=== PATIENT | female | born 1935 | race Two or more races ===

== ENCOUNTER → 2016-06-03 | Outpatient (CLI) | payer MEDICARE ==
--- NOTE | 2016-05-29 16:05 | MH ---
cc: TEODORO FRANCIS DATE OF ADMISSION: 06/03/2016 ADMITTING DIAGNOSIS: Cloudy posterior capsule, left eye. HISTORY OF PRESENT ILLNESS This 81-year-old white female is coming through [facility] for the purpose of a YAG laser posterior capsulotomy of the left eye. She is status post bilateral cataract surgery with intraocular lens implants in the past and has done well postoperatively but now notices hazy vision in her left eye all the time and was found to have a cloudy posterior capsule in the left eye. She has elected to have a YAG laser posterior capsulotomy at this time. PAST MEDICAL HISTORY The patient has a history of emphysema. PAST SURGICAL HISTORY: Melanoma removal from the right boateng as well as the bilateral cataract surgery mentioned above. MEDICATIONS 1. Occasional hydrochlorothiazide. 2. She sometimes has to take Advair and ProAir but has not had to use it lately. ALLERGIES: ASPIRIN. KEFLEX PENICILLIN SOCIAL HISTORY, FAMILY, REVIEW OF SYSTEMS: Noncontributory OCULAR EXAMINATION: Patient's best corrected visual acuity is 20/25 +1 in the right eye and 20/25 -1 in the left. Visual guadalupe are full to confrontation testing. Extraocular muscle exam reveals full versions with orthophoria at distance and near. Pupils are 3 mm equal, round, reactive to light without afferent defect. Anterior segment examination reveals bilateral posterior chamber intraocular lens implants with a cloudy posterior capsule in the left eye. Intraocular pressures 15 in each eye by applanation tonometry. Dilated fundus exam revealed sharp disk with cup-to-disk ratio 0.2 bilaterally. There are drusen and retinal pigment epithelial changes in the macula of each eye. A posterior vitreous detachment is present in the right eye. IMPRESSION 1. Cloudy posterior capsule left eye. 2. Pseudophakia both eyes. 3. Posterior vitreous detachment right eye. 4. Mild macular degeneration both eyes. PLAN: YAG laser posterior capsulotomy of the left eye through [facility]. MD CARRIE Littlejohn/JOSE G /1:37 PM /3:21 PM
[~2016-06-03] MED LIST: BALANCED SALT SOLN OPHT IRRIG 15 ML BTL ONE; FLUOROMETHOLONE 0.25% OPHT SUSP 5 ML BTL ONE; HYPROMELLOSE 0.3 % OPTH GEL 10 GM (0.34 FL OZ) TUBE ONE; PHENYLEPHRINE HCL 2.5% OPTH SOLN 2 ML BTL ONE; PROPARACAINE HCL 0.5% OPHT SOLN 15 ML BTL ONE; TROPICAMIDE 1% OPHT SOLN 15 ML BTL ONE
--- NOTE | 2016-06-04 17:24 | MP ---
cc: TEODORO GARZON DATE OF SURGERY: 06/03/2016 PREOPERATIVE DIAGNOSIS: Cloudy posterior capsule left eye. POSTOPERATIVE DIAGNOSIS: Cloudy posterior capsule left eye. OPERATION: YAG laser posterior capsulotomy, left eye. SURGEON: Teodoro Garzon MD ANESTHESIA: Topical. COMPLICATIONS: None. INDICATIONS: See history and physical previously dictated. PROCEDURE: The patient arrived at [facility]. Blood pressure was 142/99, pulse 67, respirations 20. A drop of Alphagan P and Mydriacyl were instilled in the left eye. The patient was seated at the YAG laser. A drop of Alcaine was instilled in the left eye and a YAG laser posterior capsulotomy lens was placed on the anterior surface of the left cornea. YAG laser posterior capsulotomy was carried out utilizing 35 exposures of 1.6 millijoules. An adequate opening was seen following the procedure. A drop of Alphagan P was instilled topically. The patient was given a prescription for a topical steroid to be used four times per day and has an appointment for follow up on the first postoperative day in my office. The patient left the [facility] in satisfactory condition. Teodoro Garzon MD ROLLER STAINER/ /9:40 AM /5:21 PM
== END ==
LOC: PHSDC 06:43
PROVIDERS: ATTEND Ophthalmology
DX: H26.492 Other secondary cataract, left eye (principal); H35.30 Unspecified macular degeneration; H43.819 Vitreous degeneration, unspecified eye; Z96.1 Presence of intraocular lens; J43.9 Emphysema, unspecified